=== PATIENT | female | born 1985 | race Caucasian/White ===

== ENCOUNTER 2022-09-04 15:55 | Emergency (ER) | payer OTHER, SELFPAY ==
[2022-09-04 16:05] VITALS: BP 131/77; PULSE 90; RESP 16; TEMP 36.2; O2SAT 100
--- NOTE | 2022-09-04 16:12 | ED.GENADULT ---
HPI - General Adult General Chief complaint: Urogenital-Female Stated complaint: Female Urogenital Time Seen by Provider: 09/04/22 16:12 Source: patient Mode of arrival: ambulatory Limitations: no limitations History of Present Illness HPI narrative: 37-year-old female patient presents to [facility] with complaints of vaginal discharge, irritation and itchiness that started Two days ago. Patient states that she has started having sexual relations with a new partner that began approximately 6 weeks ago. Patient states they have not use protection. Patient states she is not concerned about a and last period was August 25. Patient states she does have some concerns about STIs. Related Data Home Medications Medication Instructions Recorded Confirmed hydrochlorothiazide 12.5 mg tablet 12.5 mg PO DAILY 09/04/22 09/04/22 semaglutide 1 mg/dose (4 mg/3 mL) 1 mg subcut WEEKLY 09/04/22 09/04/22 subcutaneous pen injector (Ozempic) Allergies Allergy/AdvReac Type Severity Reaction Status Date / Time No Known Allergies Allergy Verified 09/04/22 16:00 Review of Systems Review of Systems: CONSTITUTIONAL: Denies fever, chills, or sweats. EYES: Denies visual changes, redness, or discharge. ENT: Denies rhinorrhea, congestion, sore throat, or otalgia. CARDIOVASCULAR: Denies chest pain, palpitations, or edema. RESPIRATORY: Denies cough or dyspnea. GASTROINTESTINAL: Denies abdominal pain, nausea, vomiting, or diarrhea. GENITOURINARY: Denies dysuria or hematuria. Positive vaginal discharge x2 days SKIN: Denies rash or itching. MUSCULOSKELETAL: Denies back pain, joint pain, or myalgia. NEUROLOGIC: Denies headache, numbness, or weakness. PSYCHIATRIC: Denies anxiety or depression. PMFSH Comments At the time of my signature I agree with nursing past medical history, surgical, social, and family history. There is no relevant family history pertinent to the presenting complaint. Exam Narrative: GENERAL: Well-appearing, well-nourished, and in no acute distress. HEAD: Normocephalic, atraumatic. EYES: PERRLA and EOMI. ENT: Nares clear, no rhinorrhea or epistaxis. Mucous membranes moist. NECK: Supple. No lymphadenopathy CHEST: Clear to auscultation. No respiratory distress. HEART: Regular rate and rhythm. No murmur heard. Normal peripheral pulses. ABDOMEN: Soft, nontender, nondistended, normal active bowel sounds. : Normal external female genitalia. OS is closed. No adnexal fullness or TTP. No CVA tenderness to percussion. patient does have some white milky discharge along with some thicker yellow discharge noted as well. No obvious odor noted on exam. EXTREMITIES: Normal range of motion. No edema. SKIN: Warm, dry, no rash. NEURO: No focal deficits. Alert and oriented x3. Course Course Level of Care: Express Care Visit Vital Signs Vital signs: Vital Signs Temperature 36.2 C L 09/04/22 16:05 Pulse Rate 90 09/04/22 16:05 Respiratory Rate 16 09/04/22 16:05 Blood Pressure 131/77 09/04/22 16:05 Pulse Oximetry 100 09/04/22 16:05 Oxygen Delivery Room Air 09/04/22 16:05 Temperature 36.2 C L 09/04/22 16:05 Pulse Rate 90 09/04/22 16:05 Respiratory Rate 16 09/04/22 16:05 Blood Pressure 131/77 09/04/22 16:05 Pulse Oximetry 100 09/04/22 16:05 Oxygen Delivery Room Air 09/04/22 16:05 vital signs reviewed. Medical Decision Making MDM Narrative Medical decision making narrative: Discussed with patient that we will go ahead and test and treat her for possible STIs today as well as bacterial vaginosis. Patient states she has some Diflucan at home instructed patient to keep that and wait until she is finished with all antibiotics and then take the Diflucan to help prevent yeast infection. Discussed with patient we will call her with the results of the swabs with the return from the lab. Differential Diagnosis Differential Diagnosis: Differential diagnosis: Uncomplicated lower UTI,
[2022-09-04] MEDS: cefTRIAXone 500 MG, LIDOCAINE HCL 1% LOCAL INJ 1 ML IM (16:52)
== END 2022-09-04 17:00 | disposition home or self-care (01) ==
PROVIDERS: Emergency Provider Nurse Practitioner Family; PCP Family Medicine
DX: R10.2 Pelvic and perineal pain (principal); Z11.3 Encounter for screening for infections with a predominantly sexual mode of transmission; I10 Essential (primary) hypertension; E11.9 Type 2 diabetes mellitus without complications
CPT/HCPCS: 81003; 81025; 87070; 87491; 87591; 87661; 96372; 99204; G0463